=== PATIENT | female | born 1995 | race Caucasian/White ===

== ENCOUNTER 2021-02-05 23:30 | Emergency (ER) | payer OTHER ==
[~2021-02-05 23:30] MED LIST: BYSTOLIC5 MG PO; DELSYM30 MG/5 ML PO; DIGOXIN250 MCG PO; ECOTRIN81 MG PO; FEOSOL325 MG PO; FLONASE 0.05% N16 GM; GLUCOPHAGE1000 MG PO; LEXAPRO5 MG PO; LOPRESSOR 25 MG25 MG PO; MACROBID 100 M100 MG PO; PLAVIX75 MG PO; PRILOSEC OTC20 MG PO; REXULTI PO; RISPERDAL0.5 MG PO; VIBRAMYCIN100 MG PO; VISTARIL25 MG PO; ZOCOR20 MG PO; ZOFRAN ODT 4 MG4 MG PO; ZOFRAN4 MG PO
[2021-02-06 01:00] LABS: RED BLOOD COUNT 4.37 M/UL (4.00-5.10); WHITE BLOOD COUNT 11.7 K/UL (4.5-11.0)
[2021-02-06 02:34] LABS: BUN/CREATININE RATIO 18 (0-10)
== END 2021-02-06 03:41 | disposition home or self-care (01) ==
LOC: ER1 23:30
PROVIDERS: Physician Assistant
DX: R00.2 Palpitations (principal); R51.9 Headache, unspecified; E11.9 Type 2 diabetes mellitus without complications; K21.9 Gastro-esophageal reflux disease without esophagitis; I10 Essential (primary) hypertension; Z88.0 Allergy status to penicillin; Z79.4 Long term (current) use of insulin
CPT/HCPCS: 70450; 71045; 80053; 82550; 82553; 83735; 83874; 83880; 84439; 84443; 84484; 85025; 85610; 85652; 85730; 86140; 93005; 96374; 96375; 99285; J0780; J1200; J1885